=== PATIENT | female | born 1940 | race Caucasian/White ===

== ENCOUNTER 2016-11-21 23:31 | Emergency (ER) | payer MEDICARE, OTHER ==
[2016-11-23] MEDS ORDERED: VENTOLIN HFA8 GM IH (12:06)
[2016-11-23] MEDS ORDERED: LEVAQUIN500 MG PO (12:06)
[2016-11-23] MEDS ORDERED: SPIRIVA18 MCG IH (12:06)
[2016-11-23] MEDS ORDERED: MEDROL4 M1 PO (12:07)
[2016-11-23] MEDS ORDERED: TESSALON PERLE100 MG PO (12:07)
== END 2016-11-22 02:49 | disposition critical access hospital (66) ==
LOC: ER 23:31
DX: J44.0 Chronic obstructive pulmonary disease with (acute) lower respiratory infection (principal); J20.9 Acute bronchitis, unspecified; J44.1 Chronic obstructive pulmonary disease with (acute) exacerbation; R09.02 Hypoxemia; R53.1 Weakness
CPT/HCPCS: 96365; 96375

== ENCOUNTER 2016-11-21 23:31 | Observation (INO) | payer MEDICARE, OTHER ==
[2016-11-23] MEDS ORDERED: LEVAQUIN500 MG PO (12:06)
[2016-11-23] MEDS ORDERED: SPIRIVA18 MCG IH (12:06)
[2016-11-23] MEDS ORDERED: VENTOLIN HFA8 GM IH (12:06)
[2016-11-23] MEDS ORDERED: MEDROL4 M1 PO (12:07)
[2016-11-23] MEDS ORDERED: TESSALON PERLE100 MG PO (12:07)
== END 2016-11-23 13:30 | disposition home or self-care (01) ==
LOC: ER 23:31 → MED 11-22 02:50
PROVIDERS: ADMIT Internal Medicine
DX: J96.01 Acute respiratory failure with hypoxia (principal); J44.1 Chronic obstructive pulmonary disease with (acute) exacerbation; J20.9 Acute bronchitis, unspecified; R73.9 Hyperglycemia, unspecified; T38.0X5A Adverse effect of glucocorticoids and synthetic analogues, initial encounter; Z79.899 Other long term (current) drug therapy; Z87.891 Personal history of nicotine dependence; Z81.8 Family history of other mental and behavioral disorders
CPT/HCPCS: 36415; 87502; 94640; 96361; 96365; 96372; 96375; G0378; J1650

== ENCOUNTER 2016-12-10 21:43 | Emergency (ER) | payer MEDICARE, OTHER ==
[~2016-12-10 21:43] MED LIST: LEVAQUIN500 MG PO; MEDROL4 M1 PO; SPIRIVA18 MCG IH; TESSALON PERLE100 MG PO; VENTOLIN HFA8 GM IH
== END 2016-12-10 23:25 | disposition home or self-care (01) ==
LOC: ER 21:43
DX: J44.1 Chronic obstructive pulmonary disease with (acute) exacerbation (principal)
CPT/HCPCS: 36415; 96374